=== PATIENT | male | born 1985 | race Caucasian/White ===

== ENCOUNTER 2016-06-27 15:32 | Inpatient (IN) | payer OTHER ==
--- NOTE | ~2016-06-27 | DS ---
Unit #: [id number] #: [id number] Patient: ROBIN BROCK [id number] [facility] [address] [place] [address] [id number] I MR#: [id number] NAME: ROBIN BROCK ROOM: [facility] Age: 30 Sex: M Admission Date: 06/27/2016 : 1985 Discharge Date: 07/03/2016 Attending Physician: Owen Rosales M.D. DISCHARGE SUMMARY REASON FOR ADMISSION Major depressive disorder. DIAGNOSTIC STUDIES LABORATORY RESULTS: Remarkable for urine drug screen positive for amphetamine and marijuana. HOSPITAL COURSE The patient was admitted to inpatient unit on 06/27/2016 and discharged on 07/03/2016. The patient was treated with group therapy, individual therapy, medication management. The patient responded well with the above modalities of treatment. Subsequently, the patient was discharged with a plan to follow up in outpatient program. DISCHARGE MEDICATIONS Celexa 20 mg daily for depressive symptom, Vistaril 50 mg b.i.d. for anxiety, Desyrel 50 mg at bedtime for sleep. DISCHARGE DIAGNOSES Psychiatric: Major depressive disorder, recurrent, severe, F33.2; amphetamine use disorder, severe, F15.20; cannabis abuse disorder, moderate, F12.20. Secondary diagnosis: Deferred. Medical diagnosis: Recent self-inflicted injury, requiring stitches in the left arm. Stressors: Psychosocial stressors. DISCHARGE INSTRUCTIONS The patient to follow up in outpatient clinic as per social services specialist. CONDITION ON DISCHARGE The patient was pleasant and cooperative. Denied any psychotic symptom or any suicidal ideation. PROGNOSIS Guarded. DIET AND ACTIVITY As tolerated. Unit #: [id number] #: [id number] Patient: ROBIN BROCK Dictated by... Tanesha Adrian/octavio TD: 07/04/2016 01:38 JOB #: [id number] DISCHARGE SUMMARY Page 1 of 1 X Owen Rosales MD X DISCHARGE SUMMARY
--- NOTE | ~2016-06-27 | HP ---
Unit #: [id number] #: [id number] Patient: ROBIN BROCK [id number] [place] [address] [id number] I MR#: [id number] NAME: ROBIN BROCK ROOM: P179 Age: 30 Sex: M Admission Date: 06/27/2016 : 1985 Attending Physician: Owen Rosales M.D. Admitting Physician: Owen Rosales M.D. Primary Care Physician: Generic Doctor Not In System HISTORY AND PHYSICAL HISTORY OF PRESENT ILLNESS Robin is a 30 year old admitted to [facility] with depression and self-harming behavior. He has been cutting his arms. PAST MEDICAL HISTORY Nothing significant. PAST SURGICAL HISTORY Appendectomy. ALLERGIES No known drug allergies. SOCIAL HISTORY Smokes one pack per day. Drinks alcohol on occasion. Admits to using marijuana frequently and has a history of other illicit substance abuse to include amphetamines and opioids. FAMILY HISTORY Medically noncontributory. REVIEW OF SYSTEMS CONSTITUTIONAL: No fever or chills. HEENT: Denies any sore throat, ear pain or runny nose. CARDIOVASCULAR: Denies chest pain, irregular heart rhythm or palpitations. CHEST: Denies shortness of breath or cough. No hemoptysis. GASTROINTESTINAL: Denies nausea, vomiting, diarrhea or chronic constipation. ENDOCRINE: Denies history of increased thirst or urination. No recent significant weight loss or gain. GENITOURINARY: Denies dysuria, frequency, or hematuria. SKIN: Denies any rashes. HEMATOLOGIC: Denies history of increased bleeding or bruising. MUSCULOSKELETAL: Denies any hot, swollen joints. No generalized muscle pain. NEUROLOGIC: Denies problems with vision or speech. No frequent, severe headaches. No numbness, tingling or weakness in any extremities. Denies loss of bladder or bowel control. CURRENT MEDICATIONS 1. Celexa 20 mg q.h.s. 2. Vistaril 50 mg q. 4 hours p.r.n. 3. Trazodone 75 mg q.h.s. p.r.n. Unit #: [id number] #: [id number] Patient: ROBIN BROCK 4. Milk of Magnesia p.r.n. 5. Maalox p.r.n. 6. Tylenol p.r.n. 7. Nicotine patch 14 mg q. day. PHYSICAL EXAMINATION GENERAL: Alert, well nourished. No apparent distress. VITAL SIGNS: Blood pressure 120/84, heart rate 86, respirations 16, and temperature 98.6. WEIGHT: 140. HEIGHT: 5 feet 8 inches. SKIN: Warm and dry without rash. He has multiple lacerations along his left forearm. Two of these areas are sutured. There is good skin approximation without redness, swelling, heat, or pus. HEENT: Normocephalic. TMs not viewed. Oral and nasal passages clear. Conjunctivae clear. PERRLA. EOMs intact. NECK: Supple without lymphadenopathy or thyromegaly. HEART: Regular rate and rhythm without murmur. LUNGS: Clear. ABDOMEN: Soft, nontender. : Not done. EXTREMITIES: No evidence of cyanosis, clubbing or edema. Moves all without focal deficit. NEUROLOGICAL: Grossly within normal limits. Cranial Nerves: II: Visual ness are intact. III, IV AND : Extraocular movements are intact. Pupils are equal, round and reactive to light. V: Facial sensation is grossly normal. VII: Facial movements and expression are normal. VIII: Auditory acuity grossly intact. IX, X: Uvula is midline. Phonation is normal. XI: Patient shrugs shoulders and turns head normally. XII: Tongue protrudes in the midline. Sensory and Motor Function: Sensory and motor sensation is grossly normal. Motor: moves all extremities well. Coordination: Gait is normal. Deep Tendon Reflexes: Intact. IMPRESSION Psychiatric admission. RECOMMENDATIONS PSYCHIATRIC: Per psychiatrist. MEDICAL: 1. I see no contraindication to participate in this facility's activities. 2. Keep the wounds clean with soap and water and cover with a dry dressing q. day. Suture removal in 7 to 10 days. MEDICAL PROGNOSIS Good. MEDICAL CONDITION Stable. Dictated by... Meghna Nuñez P.A.-C. for Jane Vera M.D. Unit #: [id number] #: [id number] Patient: ROBIN BROCKJA/bzg TD: 06/28/2016 11:15 JOB #: [id number] HISTORY AND PHYSICAL Page 1 of 1 X Meghna Nuñez HISTORY AND PHYSICAL
--- NOTE | ~2016-06-27 | CO ---
Unit #: [id number] #: [id number] Patient: ROBIN BROCK [id number] [facility] [address] [place] [address] [id number] I MR#: [id number] NAME: ROBIN BROCK ROOM: [facility] Age: 30 Sex: M Admission Date: 06/27/2016 : 1985 Attending Physician: Owen Rosales M.D. Primary Care Physician: Generic Doctor Not In System Consultation Date: 06/28/2016 CONSULTATION REPORT SUBJECTIVE Robin is a 30-year-old who cut on his arms prior to admission. These areas were described and treatment was outlined under his admission H and P. Please see H and P dated 06/28/2016. Dictated by... Meghna Nuñez P.A.-C. for Tanesha Jacobo/octavio TD: 06/28/2016 19:30 JOB #: [id number] CONSULTATION REPORT Page 1 of 1 X Meghna Nuñez CONSULTATION REPORT
--- NOTE | ~2016-06-27 | PN ---
Unit #: [id number] #: [id number] Patient: ROBIN BROCK [id number] [facility] [address] [place] [address] [id number] I MR#: [id number] NAME: ROBIN BROCK ROOM: [facility] Age: 30 Sex: M Admission Date: 06/27/2016 : 1985 Attending Physician: Owen Rosales M.D. Admitting Physician: Owen Rosales M.D. Primary Care Physician: Alannah Doctor Not In System [facility] PROGRESS NOTES DATE 06/29/2016 DISCUSSION Robin rBock is a 30-year-old male. The patient interviewed, chart reviewed, and obtained information from the nursing staff. The patient was compliant and cooperative. Mood sad and dysphoric, flat affect, and guarded. The patient participating in the program but still feeling sad, depressed, and anxious. The patient admitted with a suicide attempt by cutting his wrist. Vital signs, stable, 98.4, 78, 116/68. The patient continues to be isolative, flat affect, sad, dysphoric mood, compliant with medication. REVIEW OF SYSTEMS Complete review of systems unremarkable. MENTAL STATUS EXAMINATION General appearance: Patient dressed casually. Attention span and concentration, fair. Oriented to place and person. Mood and affect, sad and dysphoric, withdrawn, isolative. Speech, monotone. Thought process, concrete. The patient denied any thoughts of harming self or others but withdrawn, isolative, sad and depressed mood. Recent and remote memory, poor. Insight and judgment, poor. Recent suicide attempt, needing stitches. DIAGNOSES 1. Mood disorder, NOS. 2. Alcohol use disorder, severe. ASSESSMENT/PLAN Advised to continue with the current medication and therapeutic protocol and will monitor response to medication, and make further adjustment of medication. Dictated by... Owen Rosales M.D. Unit #: [id number] #: [id number] Patient: ROBIN BROCK ADRIEN/vonda TD: 07/03/2016 08:43 JOB #: [id number] [facility] PROGRESS NOTES Page 1 of 1 X Owen Rosales MD X PROGRESS NOTE
--- NOTE | ~2016-06-27 | PN ---
Unit #: [id number] #: [id number] Patient: ROBIN BROCK [id number] [facility] [address] [place] [address] [id number] I MR#: [id number] NAME: ROBIN BROCK ROOM: [facility] Age: 30 Sex: M Admission Date: 06/27/2016 : 1985 Attending Physician: Owen Rosales M.D. Admitting Physician: Tanesha Adrian PROGRESS NOTES DATE OF SERVICE: 07/02/2016 DISCUSSION Robin is a 30-year-old male, seen on 07/02/2016. The patient interviewed, chart reviewed, and obtained information from nursing staff. The patient was compliant, cooperative, able to participate in group. Mood was sad, dysphoric, withdrawn, but maintained safe behavior. Denied any thoughts of harming self or others. REVIEW OF SYSTEMS Complete review of systems unremarkable. MENTAL STATUS EXAMINATION General appearance, the patient dressed casually. Attention span and concentration, fair. Oriented in time, place, and person. Mood and affect, sad and dysphoric. Speech, monotone. Thought process, concrete. The patient denied any thoughts of harming self or others, but guarded. Recent and remote memory, poor. Insight and judgment, poor. DIAGNOSES 1. Mood disorder, not otherwise specified. 2. Alcohol use disorder, severe. ASSESSMENT AND PLAN Advised to continue with current medication and therapeutic protocol. We will monitor response to medication and make further adjustment of medication. Dictated by... Tanesha Adrian/octavio TD: 07/04/2016 00:40 JOB #: [id number] Unit #: [id number] #: [id number] Patient: ROBIN BROCK PROGRESS NOTES Page 1 of 1 X Owen Rosales MD PROGRESS NOTE
--- NOTE | ~2016-06-27 | PN ---
Unit #: [id number] #: [id number] Patient: ROBIN BROCK [id number] [facility] [address] [place] [address] [id number] I MR#: [id number] NAME: ROBIN BROCK ROOM: [facility] Age: 30 Sex: M Admission Date: 06/27/2016 : 1985 Attending Physician: Owen Rosales M.D. Admitting Physician: Owen Rosales M.D. Primary Care Physician: Generic Doctor Not In System [facility] PROGRESS NOTES DATE 07/01/2016 DISCUSSION Robin is a 30-year-old male seen on 07/01/2016. Patient interviewed. Chart reviewed. Obtained information from nursing staff. Patient was compliant, cooperative. Mood sad, dysphoric, flat affect, guarded. Patient withdrawn, isolative, flat affect but able to attend group. Complete review of system unremarkable. MENTAL STATUS EXAMINATION General appearance, patient dressed casually. Attention span, concentration fair. Oriented in place and person. Mood and affect sad, dysphoric, flat affect, guarded, withdrawn, isolative but able to participate in group. Complete review of system unremarkable. MENTAL STATUS EXAMINATION General appearance, patient dressed casually. Attention span, concentration fair. Oriented in place and person. Mood and affect sad, dysphoric. Speech monotone. Thought process concrete. Patient denied any thoughts of harming self or others or any psychotic symptoms. Recent and remote memory poor. Insight and judgement poor. DIAGNOSES 1. Major depressive disorder, recurrent. 2. Alcohol use disorder, severe. ASSESSMENT/PLAN Advised to continue with current medication and therapeutic protocol. Will monitor response to medication and make further adjustment of medication. Dictated by... Tanesha Adrian/maris TD: 07/04/2016 16:34 JOB #: [id number] Unit #: [id number] #: [id number] Patient: ROBIN BROCK PROGRESS NOTES Page 1 of 1 X Owen Rosales MD PROGRESS NOTE
--- NOTE | ~2016-06-27 | PN ---
Unit #: [id number] #: [id number] Patient: ROBIN BROCK [id number] [facility] [address] [place] [address] [id number] I MR#: [id number] NAME: ROBIN BROCK ROOM: [facility] Age: 30 Sex: M Admission Date: 06/27/2016 : 1985 Attending Physician: Owen Rosales M.D. Admitting Physician: Owne Rosales M.D. Primary Care Physician: Generic Doctor Not In System [facility] PROGRESS NOTES DATE 06/30/2016 DISCUSSION Robin Brock is a 30-year-old male, seen on 06/30/2016. The patient interviewed, chart reviewed, and obtained information from the nursing staff. The patient was compliant and cooperative. Mood sad and dysphoric. The patient was still reporting having suicidal ideation, flat, sad, dysphoric mood, isolative, guarded. REVIEW OF SYSTEMS Complete review of systems unremarkable. MENTAL STATUS EXAMINATION General appearance: Patient dressed casually. Attention span and concentration, fair. Oriented to place and person. Mood and affect, sad, depressed, withdrawn. Speech, monotone. Thought process, concrete. The patient denied any thoughts of harming others but having passive SI, guarded, denied any psychotic symptoms. Recent and remote memory, poor. Insight and judgment, poor. DIAGNOSES 1. Mood disorder, NOS. 2. Alcohol abuse disorder, severe. ASSESSMENT/PLAN Advised to continue with the current medication and therapeutic protocol and will monitor response to medication, and make further adjustment of medication. Dictated by... Tanesha Adrian/vonda TD: 07/04/2016 12:50 JOB #: [id number] Unit #: [id number] #: [id number] Patient: ROBIN BROCK PROGRESS NOTES Page 1 of 1 X Owen Rosales MD PROGRESS NOTE
--- NOTE | ~2016-06-27 | PN ---
Unit #: [id number] #: [id number] Patient: ROBIN BROCK [id number] [facility] [address] [place] [address] [id number] I MR#: [id number] NAME: ROBIN BROCK ROOM: [facility] Age: 30 Sex: M Admission Date: 06/27/2016 : 1985 Attending Physician: Owen Rosales M.D. Admitting Physician: Owen Rosales M.D. Primary Care Physician: Generic Doctor Not In System [facility] PROGRESS NOTES DATE 06/28/2016 DISCUSSION Robin is a 30-year-old male seen on 06/28/2016. Patient interviewed. Chart reviewed. Obtained information from nursing staff. Patient was compliant, cooperative. Mood sad, dysphoric, withdrawn, isolative, guarded. Patient still feeling sad, depressed, withdrawn, poor eye contact. Vital signs 98.6, 16, 126/92. Height 5 feet 8 inches, weight 140 pounds. MENTAL STATUS EXAMINATION General appearance, patient dressed casually. Attention span, concentration fair. Oriented in place and person. Mood and affect sad, depressed. Speech monotone. Thought process concrete. Patient denied any thoughts of harming self or others but guarded. Recent and remote memory poor. Insight and judgement poor. DIAGNOSES 1. Major depressive disorder, recurrent. 2. Polysubstance abuse. ASSESSMENT/PLAN Advised to continue with current medication and therapeutic protocol. Will monitor response to medication and make further adjustment of medication. Dictated by... Tanesha Adrian/maris TD: 06/30/2016 16:26 JOB #: [id number] Unit #: [id number] #: [id number] Patient: ROBIN BROCK PROGRESS NOTES Page 1 of 1 X Owen Rosales MD X PROGRESS NOTE
--- NOTE | ~2016-06-27 | PA ---
Unit #: [id number] #: [id number] Patient: ROBIN BROCK [id number] [facility] [address] [place] [address] [id number] I MR#: [id number] NAME: ROBIN BROCK ROOM: [facility] Age: 30 Sex: M Admission Date: 06/27/2016 : 1985 Date of Assessment: 06/28/2016 Attending Physician: Owen Rosales M.D. Admitting Physician: Owen Rosales M.D. Primary Care Physician: Generic Doctor Not In System PSYCHIATRIC ASSESSMENT INFORMANTS The patient reliability, fair informant and chart reliability, good. CHIEF COMPLAINT Suicidal ideation, methamphetamine use, and cutting himself. HISTORY OF PRESENT ILLNESS Mr. Robin Brock is a 30-year-old male, who presented with the above-mentioned complaint. The patient was admitted after cutting his left wrist two times with a knife, one cut required deep sutures. The patient reports that he got into an argument with his girlfriend in the morning. The patient reports that when she gets mad and angry like that "I don't know how to lower he defenses, she can be really cruel." "I'm really not here to say anything." The patient reports that his girlfriend then threatened to breakup with him. The patient reports he grabbed girlfriend's son's knife and cut his left wrist twice. The patient reports that he was thinking "if she calls the ambulance, she loves me; if she does not, she does not care about me." The patient reported that "I wanted attention from her." The patient reported a history of suicidal ideation earlier and intent, but denied any intents or plan, but recent suicide attempt as mentioned above. The patient reported feeling of hopelessness, worthlessness, lack of sleep, and anxiety. The patient reported living in a motel with girlfriend and 2 children. The patient reports having low income. The patient reports extensive history of substance abuse, currently endorsing methamphetamine and marijuana abuse almost on a daily basis. The patient has a history of IV drug use. Denied any current IV drug use. The patient currently denied any withdrawal symptoms or any psychotic symptoms. Needing inpatient admission at this time for psychiatric stabilization. PAST PSYCHIATRIC HISTORY Unremarkable for any history of any previous treatment. FAMILY HISTORY AND SOCIAL HISTORY The patient living with girlfriend in a motel, problem with housing and employment. No history of any abuse. MEDICAL HISTORY Remarkable for recent cuts on his left arm, self-inflicted injury. No chronic medical illness. Musculoskeletal; muscle strength and tone, no atrophy or abnormal movement. Gait normal. MEDICATION HISTORY Unit #: [id number] #: [id number] Patient: ROBIN BROCK None. ALLERGIES No known drug allergies. SUBSTANCE ABUSE HISTORY Tobacco use, age of onset 21; alcohol, age of onset 21; marijuana, age of onset 16; crack cocaine, age of onset 23, LSD, age of onset 29; opioid, age of onset 22; amphetamine, age of onset 23, and benzodiazepine, age of onset 23. The patient denied any history of HIV, hepatitis, or any withdrawal symptoms, but reported history of blackout and IV drug use. REVIEW OF SYSTEMS HEENT: Eyes, clear. Ears, nose, mouth, and throat; clear. CARDIOVASCULAR: Unremarkable. RESPIRATORY: Unremarkable. GI: Unremarkable. : Unremarkable. SKIN: Unremarkable. LYMPH NODE: Unremarkable. NEUROLOGIC: Unremarkable. ENDOCRINE: Unremarkable. HEMATOLOGIC: Unremarkable. ALLERGIC/IMMUNOLOGIC: Unremarkable. MUSCULOSKELETAL: Muscle strength and tone, no atrophy or abnormal movement. Gait normal. MENTAL STATUS EXAMINATION CONSTITUTIONAL: Measurement of vital signs; temperature 98.4, heart rate 86, respiratory rate 16, and blood pressure 119/84. Height 5 feet 8 inches and weight 140 pounds. GENERAL APPEARANCE: The patient dressed casually. Hygiene and grooming, fair. The patient did not show any facial deformity. MUSCULOSKELETAL: Please see above. PSYCHIATRIC EXAMINATION Description of speech; regular rate, normal volume, normal articulation, coherent, and spontaneous. Description of thought process, goal directed. Description of association, intact. Description of abnormal psychotic thinking; the patient denied any thoughts of harming self or others, but recent suicide attempt by cutting himself, although he has a different explanation, but serious attempt seen. Description of the patient's judgment: Concerning everyday activity, poor. Social situation, poor. Concerning psychiatric condition, poor. Complete mental status examination; oriented in time, place, and person. Recent and remote memory, fair. Attention span and concentration, fair. Language, able to name object and repeat phrases. Fund of knowledge, aware of current event and passive vocabulary intact. Mood and affect, sad and dysphoric. Insight and judgment, fair to poor. ASSETS AND LIABILITIES Assets, the patient is articulate and able to take care of his ADL. Liability, history of depression and substance abuse. ADMITTING DIAGNOSES Psychiatric: Major depressive disorder, recurrent, severe, F33.2; amphetamine use disorder, severe, F15.20; and cannabis abuse disorder, Unit #: [id number] #: [id number] Patient: ROBIN BROCK moderate, F12.20. Secondary diagnosis: Deferred. Medical diagnosis: Recent self-inflicted injury, requiring stitches on left arm. Stressors: Psychosocial stressors. PSYCHIATRIC PLAN AND TREATMENT GOAL AND DISCHARGE PLAN 1. Advised to admit the patient on the inpatient unit. Provide safe, supportive, and structured environment. 2. Ordered labs; CBC, CMP, UA, and UDS. 3. Precaution for aggression, self-harm, SC1 precaution, SIB1 precaution. 4. The patient to start with Celexa 20 mg daily, trazodone 75 mg p.o. q.h.s. p.r.n. for sleep, Vistaril 50 mg q.4 p.r.n. for severe anxiety. The patient to attend all the programing, group therapy, individual therapy, and medication management. TREATMENT GOAL To attain euthymic mood, gain insight into his problem, and learn coping skills. DISCHARGE PLAN Plan to stabilize the patient and consider followup in outpatient program. ESTIMATED LENGTH OF STAY 5 days. Dictated by... Tanesha Adrian/octavio TD: 06/28/2016 20:50 JOB #: [id number] PSYCHIATRIC ASSESSMENT Page 1 of 1 X Owne Rosales MD X PSYCHIATRIC ASSESSMENT
[2016-06-28 09:36] LABS: BASOPHIL% 0.6 % (0-2.5); EOSINOPHIL# 0.3 X10e3 (0-0.7); EOSINOPHIL% 3.8 % (0.0-7.0); HEMATOCRIT 45.7 % (38.0-50.0); HEMOGLOBIN 15.1 gm/dL (13.0-16.0); LYMPHOCYTE# 2.5 X10e3 (1.0-3.5); LYMPHOCYTE% 33.1 % (17.0-45.0); MEAN CELL VOLUME 90.5 FL (83-96); MEAN CORPUSCULAR HEMOGLOBIN 29.9 PG (28-34); MEAN CORPUSCULAR HGB CONC 33.1 g/dL (30-36); MEAN PLATELET VOLUME 9.3 FL (6.5-11.5); MONOCYTE# 0.7 X10e3 (0-1.0); MONOCYTE% 9.5 % (3.0-12.0); NEUTROPHIL# 4.1 X10e3 (1.5-7.1); PLATELET COUNT 198 X10e3 (140-420); RED BLOOD COUNT 5.05 X10e (3.90-5.60); RED CELL DISTRIBUTION WIDTH 13.2 % (11.0-15.5); WHITE BLOOD COUNT 7.7 X10e3 (4.0-10.5)
[2016-06-28 09:42] LABS: DIFF IND NO
[2016-06-28 10:24] LABS: ALBUMIN SERUM 4.2 g/dL (3.5-5.0); BILIRUBIN,TOTAL 0.6 mg/dL (0.2-2.0); CALCIUM SERUM 8.9 mg/dL (8.4-10.2); CREATININE SERUM 0.9 mg/dL (0.6-1.4); GLOM FILT RATE Estimated 115.8 mL/min (>60); POTASSIUM 4.3 mmol/L (3.5-5.1); PROTEIN TOTAL SERUM 6.9 g/dL (6.0-8.3)
[2016-06-29 09:44] LABS: URINE APPEARANCE CLEAR; URINE BILIRUBIN NEG (NEG); URINE BLOOD NEG (NEG); URINE COLOR YELLOW; URINE GLUCOSE NEG (NEG); URINE KETONE NEG (NEG); URINE LEUKOCYTE ESTERASE NEG (NEG); URINE NITRATE NEG (NEG); URINE PH 6.5 (5-8); URINE PROTEIN NEG (NEG); URINE SPECIFIC GRAVITY 1.023 (1.003-1.035); URINE UROBILINOGEN 0.2 MG/DL (NEG)
[2016-06-29 10:01] LABS: AMPHETAMINE POS (NEG); BARBITURATES NEG (NEG); BENZODIAZEPINES NEG (NEG); COCAINE NEG (NEG); MARIJUANA POS (NEG); OPIATES NEG (NEG); TRICYCLIC ANTIDEPRESSANTS NEG (NEG); U METHADONE NEG (NEG)
== END 2016-07-03 09:35 | disposition home or self-care (01) | DRG 885 ==
LOC: P1E 15:32
PROVIDERS: Psychiatry & Neurology Psychiatry
DX: F33.2 Major depressive disorder, recurrent severe without psychotic features (principal); F15.20 Other stimulant dependence, uncomplicated; R45.851 Suicidal ideations; F12.10 Cannabis abuse, uncomplicated; S41.112D Laceration without foreign body of left upper arm, subsequent encounter; X78.1XXD Intentional self-harm by knife, subsequent encounter; F17.210 Nicotine dependence, cigarettes, uncomplicated; F19.10 Other psychoactive substance abuse, uncomplicated; F10.20 Alcohol dependence, uncomplicated; F41.9 Anxiety disorder, unspecified
CPT/HCPCS: 80053; 80307; 81003; 85025